=== PATIENT | female | born 1960 | race African-American/Black ===

== ENCOUNTER 2021-01-15 09:44 | Emergency (ER) | payer MEDICARE, MEDICAID ==
[~2021-01-15] VITALS: Ht 154.9 cm; Wt 81.8 kg
[~2021-01-15 09:44] MED LIST: FLEXERIL5 MG PO; NEURONTIN600 MG/TAB PO; PROTONIX 40MG T40 MG PO; TOPROL XL 25MG25 MG PO; VIVLODEX5 MG PO
[2021-01-15 09:50] VITALS: TEMP 98.5
[2021-01-15 10:28] LABS: BASO % 0.5 % (0.0-2.0); EOS # 0.3 (0.0-0.7); EOS % 3.7 % (0-4.0); GRAN # 2.9 (1.4-6.5); GRAN % 36.9 % (42.2-75.2); HEMOGLOBIN 11.2 g/dl (12.5-16.0); LYMPH # 3.9 (1.2-3.4); LYMPH % 49.7 % (20.0-51.0); MEAN CELL VOLUME 88 fl (80.0-100.0); MEAN CORPUSCULAR HEMOGLOBIN 27 pg (27.0-31.0); MEAN CORPUSCULAR HGB CONC 31 g/dl (33.0-37.0); MEAN PLATELET VOLUME 11.7 fl (7.4-10.4); MONO # 0.7 (0.1-0.6); MONO % 8.8 % (1.7-9.3); PLATELET COUNT 239 K/mm3 (130-400)
[2021-01-15 10:40] LABS: ALANINE AMINOTRANSFERASE 30 U/L (4-34); ALBUMIN 3.9 gm/dL (3.5-5.0); ALKALINE PHOSPHATASE 83 U/L (50-136); ANION GAP 8 mmol/L (7-16); AST,SGOT 36 U/L (15-37); BILIRUBIN,TOTAL 0.3 mg/dL (0.0-1.0); BLOOD UREA NITROGEN 23 mg/dL (7-17); CALCIUM 9.2 mg/dL (8.4-10.2); CARBON DIOXIDE 24 mmol/L (22-30); CHLORIDE 110 mmol/L (98-107); CREATININE, serum 0.98 (0.52-1.25); GLUCOSE 107 mg/dL (74-106); POTASSIUM 4.1 mmol/L (3.4-5.0); SODIUM 142 mmol/L (137-145); TOTAL PROTEIN 7.2 gm/dL (6.4-8.2)
[2021-01-15 10:42] LABS: C-REACTIVE PROTEIN < 0.5 mg/dL (0.0-0.9)
[2021-01-15 14:10] VITALS: BP 145/79; PULSE 82
== END 2021-01-15 14:15 | disposition home or self-care (01) ==
LOC: COL.ER
PROVIDERS: Family Medicine
DX: R07.9 Chest pain, unspecified (principal); G56.10 Other lesions of median nerve, unspecified upper limb; I10 Essential (primary) hypertension

== ENCOUNTER 2021-12-11 11:11 | Emergency (ER) | payer MEDICARE, MEDICAID ==
[~2021-12-11] VITALS: Ht 149.9 cm; Wt 85.9 kg
[2021-12-11 11:18] VITALS: TEMP 97.8
[2021-12-11 11:37] LABS: BASO % 0.1 % (0.0-2.0); EOS # 0.2 K/mm3 (0.0-0.7); EOS % 2.3 % (0.0-4.0); GRAN # 6.5 K/mm3 (1.4-6.5); GRAN % 61.7 % (42.2-75.2); HEMATOCRIT 42.2 % (37.0-47.0); HEMOGLOBIN 13.1 g/dl (12.5-16.0); LYMPH # 3.3 K/mm3 (1.2-3.4); MEAN CELL VOLUME 86 fl (80.0-100.0); MEAN CORPUSCULAR HEMOGLOBIN 27 pg (27-31); MEAN CORPUSCULAR HGB CONC 31 g/dl (33.0-37.0); MEAN PLATELET VOLUME 11.6 fl (7.4-10.4); MONO # 0.5 K/mm3 (0.1-0.6); MONO % 4.6 % (1.7-9.3); PLATELET COUNT 234 K/mm3 (130-400); RED BLOOD COUNT 4.91 M/mm3 (4.10-5.30); REDCELL DISTRIBUTION WIDTH-CV 14.4 % (11.5-14.5)
[2021-12-11 11:58] LABS: ALBUMIN 3.9 gm/dL (3.5-5.0); BILIRUBIN,TOTAL 0.6 mg/dL (0.2-1.2); C-REACTIVE PROTEIN 0.45 mg/dL (0.00-0.50); CALCIUM 8.9 mg/dL (8.4-10.2); CREATININE, serum 0.9 mg/dL (0.57-1.11); TOTAL PROTEIN 8.2 gm/dL (6.2-8.1)
[2021-12-11 13:07] LABS: COLLECTION METHOD CLEAN CATCH
[2021-12-11 13:13] LABS: PH 5 (5-8); SQUAMOUS EPITHELIAL 0-2 /hpf (0-10); URINE APPEARANCE Clear (CLEAR/HAZY); URINE BACTERIA None Seen /hpf (NONE SEEN); URINE BILIRUBIN Negative (NEGATIVE); URINE BLOOD Negative (NEGATIVE); URINE COLOR Yellow (YELLOW); URINE GLUCOSE Negative (NEGATIVE); URINE KETONE Negative (NEGATIVE); URINE LEUKOCYTE ESTERASE 2+ (NEGATIVE); URINE NITRATE Negative (NEGATIVE); URINE PROTEIN(semi-quant) Negative (NEGATIVE); URINE RBC 0-2 /hpf (0-2); URINE UROBILINOGEN Negative (NEGATIVE)
[2021-12-11] MEDS ORDERED: OMNICEF 300MG300 MG PO (13:42)
[2021-12-11] MEDS ORDERED: ZOFRAN 4MG T4 MG/TAB PO (13:42)
[2021-12-11 13:44] VITALS: BP 156/77; PULSE 81
== END 2021-12-11 13:57 | disposition home or self-care (01) ==
LOC: COL.ER 11:11
PROVIDERS: Nurse Practitioner Primary Care
DX: R10.31 Right lower quadrant pain (principal); R10.32 Left lower quadrant pain; R11.0 Nausea; M54.50 Low back pain, unspecified; I10 Essential (primary) hypertension; K21.9 Gastro-esophageal reflux disease without esophagitis; Z79.899 Other long term (current) drug therapy
CPT/HCPCS: J1885; J2405; J7030

== ENCOUNTER 2022-03-20 19:05 | Observation (INO) | payer MEDICARE, MEDICAID ==
[~2022-03-20] VITALS: Ht 152.4 cm; Wt 80.7 kg
[~2022-03-20 19:05] MED LIST changes: +OMNICEF 300MG300 MG PO; +ZOFRAN 4MG T4 MG/TAB PO
[2022-03-20 20:03] LABS: HEMOGLOBIN 12.1 g/dl (12.5-16.0); MEAN CELL VOLUME 84 fl (80.0-100.0); MEAN CORPUSCULAR HEMOGLOBIN 28 pg (27-31); MEAN CORPUSCULAR HGB CONC 33 g/dl (33.0-37.0); MEAN PLATELET VOLUME 11.5 fl (7.4-10.4); PLATELET COUNT 265 K/mm3 (130-400); REDCELL DISTRIBUTION WIDTH-CV 14.3 % (11.5-14.5)
[2022-03-20 20:17] LABS: BILIRUBIN,TOTAL 0.6 mg/dL (0.2-1.2); C-REACTIVE PROTEIN 0.28 mg/dL (0.00-0.50); CALCIUM 9.2 mg/dL (8.4-10.2); POTASSIUM 3.8 mmol/L (3.5-4.5)
[2022-03-20 20:27] LABS: TROPONIN-I 0.139 ng/mL (0.00-0.033)
[2022-03-20 20:29] LABS: EOSINOPHIL 1 % (0-4); LYMPHOCYTE 56 % (20.0-51.0); NEUTROPHILS 39 % (42.0-75.2); PLATELET ESTIMATE NORMAL (NORMAL)
[2022-03-20 20:34] LABS: INR 1.1 (0.8-3.0); PROTHROMBIN TIME 12.9 SECONDS (9.7-12.8)
[2022-03-20 20:49] LABS: ALBUMIN 3.6 gm/dL (3.5-5.0); CREATININE, serum 0.75 mg/dL (0.57-1.11)
[2022-03-20 21:02] LABS: D-DIMER < 200.00 ng/mLDDu (200-230)
[2022-03-20 21:13] LABS: PARTIAL THROMBOPLASTIN TIME 29.5 SECONDS (26.0-37.0)
[2022-03-20 22:25] VITALS: BP 145/69; PULSE 78; TEMP 98.5
[2022-03-20] MEDS ORDERED: CYMBALTA 30MG30 MG PO (22:40)
[2022-03-20] MEDS ORDERED: LIPITOR 10MG10 MG PO (22:41)
[2022-03-20] MEDS ORDERED: MULTIVITAMIN FO1 CAP PO (22:42)
[2022-03-20] MEDS ORDERED: RESTASIS0.05% OP (22:45)
[2022-03-20 23:43] VITALS: BP 124/64; PULSE 67; TEMP 97.9
[2022-03-21] VITALS (7 sets, daily range): BP systolic 110–154; BP diastolic 53–82; PULSE 56–85; TEMP 97.4–98.6
[2022-03-21 06:16] LABS: BASO % 0.5 % (0.0-2.0); EOS # 0.1 K/mm3 (0.0-0.7); EOS % 1.8 % (0.0-4.0); GRAN # 2.8 K/mm3 (1.4-6.5); GRAN % 37.9 % (42.2-75.2); HEMATOCRIT 37.3 % (37.0-47.0); HEMOGLOBIN 11.3 g/dl (12.5-16.0); LYMPH # 3.8 K/mm3 (1.2-3.4); LYMPH % 52.1 % (20.0-51.0); MEAN CORPUSCULAR HEMOGLOBIN 28 pg (27-31); MEAN CORPUSCULAR HGB CONC 30 g/dl (33.0-37.0); MEAN PLATELET VOLUME 12.3 fl (7.4-10.4); MONO # 0.5 K/mm3 (0.1-0.6); MONO % 7.4 % (1.7-9.3); PLATELET COUNT 233 K/mm3 (130-400); RED BLOOD COUNT 4.07 M/mm3 (4.10-5.30); REDCELL DISTRIBUTION WIDTH-CV 14.6 % (11.5-14.5)
[2022-03-21 06:21] LABS: MEAN CELL VOLUME 92 fl (80.0-100.0)
[2022-03-21 06:23] LABS: CALCIUM 8.5 mg/dL (8.4-10.2); CREATININE, serum 0.81 mg/dL (0.57-1.11); POTASSIUM 3.5 mmol/L (3.5-4.5)
--- NOTE | 2022-03-21 06:45 | NUR ---
Report received, assumed care for dayshift.
--- NOTE | 2022-03-21 10:27 | NUR ---
Heparin drip decresed to 700 units/hr per protocol for HepXa of 0.53.
--- NOTE | 2022-03-21 10:41 | NUR ---
SW met with patient to complete intake. Patient states that she lives in [place] alone and her point of contact his her daughter Ana [phone]. Patient states she does not utilize DME and is independent with ADL's, and does not utilize HH services. PCP is Dr. Mena and pharmacy is [facility]. Patient states she does not have a DPOA/HC and does not wish to appoint anyone at this time. Plan is to return to home in [place] upon dc. GHULAM will continue to follow. DC plan: home
--- NOTE | 2022-03-21 14:40 | NUR ---
Called with c/o chest pain. Rating pain 6/10 to mid sternum-described as sharp pains. VS WNL. EKG complete and on chart. Spoke with Dr Centeno and new orders received and initiated.
--- NOTE | 2022-03-21 15:01 | NUR ---
Patient states chest pain is gone after receiving nitro x1, protonix and tums.
--- NOTE | 2022-03-21 15:51 | NUR ---
Dr Centeno notified of critical troponin level. No new orders received.
--- NOTE | 2022-03-21 16:59 | NUR ---
HepXa 0.32-therapuetic. No change at this time.
--- NOTE | 2022-03-21 18:03 | NUR ---
Sitting up in bed eating dinner. Complained of chest pain x1. Received nitro x1 with a little relief. Received protonix and tums with pain resolution. Heparin gtt continues to infuse @7ml/hr. Denies current needs. Call light in reach. Will monitor.
--- NOTE | 2022-03-21 20:00 | NUR ---
Patient is resting in bed, alert and oriented x 4, VSS. Denies chest pain at the moment. Telemetry in place NSR. Hep gtt 7ml/hr At goal. Assessment completed, meds provide no other needs at this time. Call light within reach
[2022-03-22 03:49] VITALS: BP 108/67; PULSE 63; TEMP 97.8
--- NOTE | 2022-03-22 06:30 | NUR ---
Report received, assumed care for day shift.
--- NOTE | 2022-03-22 07:05 | NUR ---
Heparin drip decreased to 600 units/hour per protocol with a HepXa of 0.47.
[2022-03-22 07:56] VITALS: BP 125/63; PULSE 63; TEMP 98.5
--- NOTE | 2022-03-22 08:00 | NUR ---
Assessment complete. A&Ox3. Denies pain/chest pain/nausea/shortness of breath. VS remain stable. Tele reporting SB. Right forearm IV with Heparin infusing at 700units/hour. Left forearm INT flushes without difficutly. Plan of care discussed for this shift to inclue meds/heparin gtt/calling for questions/concerns. Verbalizes understanding. Call light in reach. Will monitor.
--- NOTE | 2022-03-22 11:01 | NUR ---
Clear liquids provided per patient request.
[2022-03-22 12:22] VITALS: BP 144/68; PULSE 62; TEMP 98.3
--- NOTE | 2022-03-22 14:11 | NUR ---
HepXa therapuetic-no change required.
--- NOTE | 2022-03-22 15:51 | NUR ---
Called with c/o heartburn from lunch meal. Mylanta given per dr order. Denies chest pain/nausea/shortness of breath. Denies current needs. Call light in reach. Will monitor.
[2022-03-22 16:26] VITALS: BP 151/88; PULSE 78; TEMP 98.1
--- NOTE | 2022-03-22 17:09 | NUR ---
Patient had an unevenful day. Denied pain/chest pain/shortness of breath/nausea. VS remained stable. Heparin infusing @600units/hour to right forearm IV without difficulty. Next HepXa due at 1900. Discussed NPO at midnight tonight for cards procedure tomorrow. Denies questions/concerns. Call light in reach. Will monitor.
[2022-03-22 20:10] VITALS: BP 157/74; PULSE 79; TEMP 98.3
[2022-03-22 23:59] VITALS: BP 116/48; PULSE 61; TEMP 99.4
[2022-03-23 03:47] VITALS: BP 131/65; PULSE 57; TEMP 98.6
--- NOTE | 2022-03-23 06:28 | NUR ---
ASSUMED CARE OF PATIENT AFTER RECEIVING BEDSIDE REPORT. ASSESSMENT COMPLETED, VSS. PATIENT DENIES ANY CHEST PAIN OR RELATED SYMPTOMS. PATIENT DENIES QUESTIONS, COMPLAINTS, AND CONCERNS. PATIENT NPO AFTER MIDNIGHT. NO ACUTE EVENTS OVERNIGHT. BEDSIDE REPORT TO BE GIVEN TO ONCOMING SHIFT.
[2022-03-23 07:07] VITALS: BP 104/67; PULSE 55; TEMP 98
--- NOTE | 2022-03-23 09:14 | NUR ---
PT LAYING SUPINE IN BED. PT STATES THAT SHE IS NOT WANTING TO TAKE ANY OF HER MEDICATIONS THIS AM BECAUSE SHE HAS BEEN NPO AND DOES NOT WANT TO TAKE THEM ON AN EMPTY STOMACH SO THEY DO NOT CAUSE ANY N/V. MEDICATIONS WERE HELD PER HER REQUEST. PT STATES THAT SHE IS NOT HAVING ANY CHEST PAIN OR DISCOMFORT AT THIS TIME. NO SOB OR DIZZINES. "IM JUST WAITING TO SEE WHAT THEY ARE GOING TO DO." CALL LIGHT IS WITHIN REACH.
[2022-03-23 10:04] LABS: CALCIUM 8.6 mg/dL (8.4-10.2); CREATININE, serum 0.88 mg/dL (0.57-1.11); POTASSIUM 4.2 mmol/L (3.5-4.5)
[2022-03-23] MEDS ORDERED: RANEXA 500MG T500 MG PO (10:55)
[2022-03-23] MEDS ORDERED: LIPITOR 80MG80 MG PO (10:55)
[2022-03-23] MEDS ORDERED: ASPIRIN 81M81 MG/TA2 PO (10:56)
[2022-03-23 11:07] VITALS: BP 134/66; PULSE 60; TEMP 98.4
[2022-03-23] MEDS ORDERED: TOPROL XL 25MG25 MG PO (11:28)
--- NOTE | 2022-03-23 13:18 | NUR ---
The patient is to discharge back home today, 03/23. SW met with the patient and presented and read the IM form outloud to the patient. The patient verbalized understanding and of discharge today. She signed the form and declined a copy. No additional needs at this time.
== END 2022-03-23 13:30 | disposition home or self-care (01) ==
LOC: COL.ER 19:05 → MEDICAL 21:11
PROVIDERS: Emergency Medicine; Physician Assistant; Student in an Organized Health Care Education/Training Program; ADMIT Internal Medicine
DX: I21.4 Non-ST elevation (NSTEMI) myocardial infarction (principal); I16.0 Hypertensive urgency; I11.0 Hypertensive heart disease with heart failure; I50.30 Unspecified diastolic (congestive) heart failure; I42.2 Other hypertrophic cardiomyopathy; K21.9 Gastro-esophageal reflux disease without esophagitis; G89.29 Other chronic pain; M54.50 Low back pain, unspecified; E78.5 Hyperlipidemia, unspecified; Z28.310 Unvaccinated for COVID-19; Z28.9 Immunization not carried out for unspecified reason; Z79.899 Other long term (current) drug therapy; Z91.19 Patient's noncompliance with other medical treatment and regimen; Z79.82 Long term (current) use of aspirin
CPT/HCPCS: 99223-AI; 99232-AI; 99233-AI; C9113; G0378; J1644; J2270; J7030

== ENCOUNTER 2022-04-02 21:23 | Emergency (ER) | payer MEDICARE, MEDICAID ==
[~2022-04-02] VITALS: Ht 172.7 cm; Wt 86.4 kg
[~2022-04-02 21:23] MED LIST changes: +ASPIRIN 81M81 MG/TA2 PO; +CYMBALTA 30MG30 MG PO; +LIPITOR 10MG10 MG PO; +LIPITOR 80MG80 MG PO; +MULTIVITAMIN FO1 CAP PO; +RANEXA 500MG T500 MG PO; +RESTASIS0.05% OP
[2022-04-02 23:38] VITALS: BP 144/78; PULSE 76
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
== END 2022-04-02 23:38 | disposition home or self-care (01) ==
LOC: COL.ER 21:23
DX: S10.80XA Unspecified superficial injury of other specified part of neck, initial encounter (principal); S50.11XA Contusion of right forearm, initial encounter; S40.021A Contusion of right upper arm, initial encounter; Z28.310 Unvaccinated for COVID-19; Y04.0XXA Assault by unarmed brawl or fight, initial encounter

== ENCOUNTER 2022-05-12 18:03 | Observation (INO) | payer MEDICARE, MEDICAID ==
[~2022-05-12] VITALS: Ht 152.4 cm; Wt 83.4 kg
[2022-05-12 18:19] LABS: HEMATOCRIT 38.1 % (37.0-47.0); MEAN CELL VOLUME 86 fl (80.0-100.0); MEAN CORPUSCULAR HEMOGLOBIN 27 pg (27-31); MEAN CORPUSCULAR HGB CONC 32 g/dl (33.0-37.0); MEAN PLATELET VOLUME 11.7 fl (7.4-10.4); PLATELET COUNT 322 K/mm3 (130-400); RED BLOOD COUNT 4.45 M/mm3 (4.10-5.30); REDCELL DISTRIBUTION WIDTH-CV 13.8 % (11.5-14.5)
[2022-05-12 18:35] LABS: ALANINE AMINOTRANSFERASE 50 U/L (0-55); ALKALINE PHOSPHATASE 78 U/L (40-150); ANION GAP 16 mmol/L (7-16); AST,SGOT 34 U/L (5-34); BILIRUBIN,TOTAL 0.6 mg/dL (0.2-1.2); BLOOD UREA NITROGEN 18 mg/dL (10-20); CALCIUM 9.7 mg/dL (8.4-10.2); CARBON DIOXIDE 22 mmol/L (23-31); CHLORIDE 105 mmol/L (98-107); CREATININE, serum 0.91 mg/dL (0.57-1.11); GLUCOSE 93 mg/dL (70-99); INR 1.2 (0.8-3.0); PROTHROMBIN TIME 13.9 SECONDS (9.7-12.8); SODIUM 143 mmol/L (136-145); TOTAL PROTEIN 8.8 gm/dL (6.2-8.1)
[2022-05-12 18:37] LABS: PARTIAL THROMBOPLASTIN TIME 33.3 SECONDS (26.0-37.0)
[2022-05-12 18:42] LABS: ALCOHOL(ethanol),MEDICAL < 10 mg/dL (0-10)
[2022-05-12 18:43] LABS: TROPONIN-I 0.072 ng/mL (0.00-0.033)
[2022-05-12 19:26] LABS: EOSINOPHIL 1 % (0-4); LYMPHOCYTE 49 % (20.0-51.0); NEUTROPHILS 47 % (42.0-75.2); PLATELET ESTIMATE NORMAL (NORMAL)
[2022-05-12 23:09] VITALS: BP 188/74; PULSE 63; TEMP 98.3
[2022-05-13] VITALS (8 sets, daily range): BP systolic 126–171; BP diastolic 59–77; PULSE 58–65; TEMP 98.3–99.7
--- NOTE | 2022-05-13 00:53 | NUR ---
PATIENT UP TO ROOM 329. ALERT AND ORIENTED, SLID OVER TO BED FROM STRETCHER WITHOUT ISSUE. MED RX COMPLETED. ADMISSION ASSESSMENTS COMPLETED. CALL PLACED TO JARED SHOEMAKER, TO NOTIFY OF ARRIVAL AND BP ELEVATION. ORDER TO RESTART HOME METOPROLOL NOW. METOPROLOL GIVEN AND JARED SHOEMAKER IN ROOM TO SEE PATIENT. DISCUSSED CASE WITH JARED SHOEMAKER AND ADDITIONAL 25 MG OF METOPROLOL ORDERED AND GIVEN. PATIENT TOLERATED X2 JELLOS AND SOME WATER. REMAINS NPO SINCE MIDNIGHT FOR CARDS CONSULT IN AM.
[2022-05-13 06:47] LABS: BASO % 0.5 % (0.0-2.0); EOS # 0.2 K/mm3 (0.0-0.7); EOS % 2.5 % (0.0-4.0); GRAN # 3.3 K/mm3 (1.4-6.5); GRAN % 41.3 % (42.2-75.2); HEMOGLOBIN 11.4 g/dl (12.5-16.0); LYMPH # 3.9 K/mm3 (1.2-3.4); LYMPH % 49.2 % (20.0-51.0); MEAN CELL VOLUME 86 fl (80.0-100.0); MEAN CORPUSCULAR HEMOGLOBIN 27 pg (27-31); MEAN CORPUSCULAR HGB CONC 32 g/dl (33.0-37.0); MONO # 0.5 K/mm3 (0.1-0.6); MONO % 6.2 % (1.7-9.3); PLATELET COUNT 288 K/mm3 (130-400); RED BLOOD COUNT 4.22 M/mm3 (4.10-5.30); REDCELL DISTRIBUTION WIDTH-CV 13.8 % (11.5-14.5)
[2022-05-13 07:02] LABS: ALBUMIN 3.5 gm/dL (3.4-4.8); BILIRUBIN,TOTAL 0.7 mg/dL (0.2-1.2); CALCIUM 9.1 mg/dL (8.4-10.2); CREATININE, serum 0.84 mg/dL (0.57-1.11); POTASSIUM 3.3 mmol/L (3.5-4.5); TOTAL PROTEIN 7.7 gm/dL (6.2-8.1)
[2022-05-13 07:08] LABS: HEMATOCRIT 36.1 % (37.0-47.0)
[2022-05-13 07:50] LABS: TROPONIN-I 0.07 ng/mL (0.00-0.033)
--- NOTE | 2022-05-13 09:04 | NUR ---
Grounds Caretaker met with patient to discuss discharge planning. Patient lives alone in [place] and advised her daughter, Ana (ph#[phone]) lives nearby. Patient sees Monica Mena for primary care and obtains medications from [facility] with no difficulties. Patient is independent with ADLS and does not use any DME. Patient does not have Advance Directives and plans to return home at time of discharge. Discharge Plan: Home
--- NOTE | 2022-05-13 09:30 | NUR ---
Pt reports she is doing okay this morning. She does have complaints of a headache, notified Yuliya SHOEMAKER for Tylenol order. Discussed with cardiology pt home medications, okay to give at this time. Potassium level as well as troponin level was reported to Yuliya SHOEMAKER earlier this am. Potassium being replaced per protocol. Pt having complaints of it burning, turned down to 50ml/hr for comfort and gave ice pack. Cardiology reported they would be by soon to see her
--- NOTE | 2022-05-13 10:20 | NUR ---
Pt having complaints of chest pain, BP slightly elevated, pulse stable. Notified SAHARA Lawler with cardiology. Had pt go ahead and take her morning medications. Pt refused to take them earlier stating that it will make her stomach upset on an empty stomach. Informed her that if that happens I can get her some nausea medications.
--- NOTE | 2022-05-13 13:03 | NUR ---
Initial visit; Patient thanked Superintendent Service for visiting her and states she is doing well and waiting for her lunch. Superintendent Service was pleased to hear that patient is doing well and advised her to continue to do what she is doing! She smiled and thanked Superintendent Service.
--- NOTE | 2022-05-13 15:16 | NUR ---
Pt doing well this afternoon. No complaints of pain at this time. She has tolerated heart healthy diet with no issues. All questions answered, call light within reach
--- NOTE | 2022-05-14 02:14 | NUR ---
PATIENT IN BED ON ROOM ENTRY AT SHIFT CHANGE. ALERT AND ORIENTED. HS MEDS PER EMAR. PATIENT REQUESTED BEDCHANGE AND LINEN CHANGE WAS COMPLETE. PATIENT SHOWERED INDEPENDENTLY WITH SETUP ASSISTANCE. DENIES ADDITIONAL NEEDS.
[2022-05-14 04:41] VITALS: BP 138/75; PULSE 59; TEMP 99.1
[2022-05-14 06:46] LABS: BASO % 0.5 % (0.0-2.0); EOS # 0.2 K/mm3 (0.0-0.7); EOS % 2.5 % (0.0-4.0); GRAN # 3.9 K/mm3 (1.4-6.5); GRAN % 46.1 % (42.2-75.2); LYMPH # 3.7 K/mm3 (1.2-3.4); LYMPH % 44.4 % (20.0-51.0); MEAN CELL VOLUME 87 fl (80.0-100.0); MEAN CORPUSCULAR HEMOGLOBIN 27 pg (27-31); MEAN CORPUSCULAR HGB CONC 32 g/dl (33.0-37.0); MEAN PLATELET VOLUME 11.5 fl (7.4-10.4); MONO # 0.5 K/mm3 (0.1-0.6); MONO % 6.3 % (1.7-9.3); PLATELET COUNT 293 K/mm3 (130-400); RED BLOOD COUNT 4.38 M/mm3 (4.10-5.30); REDCELL DISTRIBUTION WIDTH-CV 13.7 % (11.5-14.5)
[2022-05-14 07:17] LABS: ALBUMIN 3.6 gm/dL (3.4-4.8); BILIRUBIN,TOTAL 0.4 mg/dL (0.2-1.2); CALCIUM 9.4 mg/dL (8.4-10.2); CREATININE, serum 1.04 mg/dL (0.57-1.11); TOTAL PROTEIN 7.8 gm/dL (6.2-8.1)
[2022-05-14 08:13] VITALS: BP 124/71; PULSE 54; TEMP 98.7
[2022-05-14] MEDS ORDERED: RANEXA 500MG T500 MG PO (09:17)
[2022-05-14] MEDS ORDERED: TOPROL XL 50MG50 MG PO (09:18)
--- NOTE | 2022-05-14 10:24 | NUR ---
ASSESSMENT DONE, PATIENT ALERTX 4 WITH NO ISSUE OF CONFUSION.PATIENT IS A FULL CODE. NO PAIN AT THIS TIME. LUNG CLEAR IN ALL LOBES. BOWEL SOUND ACTIVE IN ALL 4 QUAD. IV SITE ON RIGHT AC AND RIGHT HAND. PER ORDER ,PATIENT POSSIBLE DISCHARGE TODAY. PATIENT TOLERATED MEDICATION WITH OUT ANY ISSUE. CALL LIGHT IN REACH. INSTRUCTED TO CALL IF THERE IS ANY CONCERN OR QUESTION
[2022-05-14 11:18] VITALS: BP 125/70; PULSE 53
--- NOTE | 2022-05-14 11:50 | NUR ---
AGREE WITH CHARTED ASSESSMENTS.
--- NOTE | 2022-05-14 12:09 | NUR ---
PATIENT WILL BE DISCHARGE TODAY. PATIENT IS AWARE AND INFORM HER FAMILY. SHE STATED THAT FAMILY WILL BE HERE AROUND 2 PM. IV SITE WAS DISCONTINUE (R) AC AND R(HAND) NO BLEEDING NOTED. NO PAIN NOTED. PATIENT DID FOR TYLENOL AROUND 1100AM. VITALS WAS STABLE AT THAT TIME. HEADACHE DECREASE TO FROM HARD TO MILD NOW(PER PATIENT)
--- NOTE | 2022-05-14 14:11 | NUR ---
DISCHARGE INSTRUCTIONS REVIEWED WITH PT. QUESTIONS SOLICITED AND ANSWERED. PT LEFT UNIT IN WHEEL CHAIR WITH STAFF.
== END 2022-05-14 14:13 | disposition home or self-care (01) ==
LOC: COL.ER → EDBD 18:04 → COL.ER 18:04 → SURG 22:00
PROVIDERS: Emergency Medicine; Physician Assistant; ADMIT Internal Medicine
DX: I21.A1 Myocardial infarction type 2 (principal); R07.9 Chest pain, unspecified; I11.0 Hypertensive heart disease with heart failure; I50.30 Unspecified diastolic (congestive) heart failure; E78.5 Hyperlipidemia, unspecified; E87.6 Hypokalemia; I42.2 Other hypertrophic cardiomyopathy; G89.29 Other chronic pain; M54.50 Low back pain, unspecified; Z28.310 Unvaccinated for COVID-19; Z28.9 Immunization not carried out for unspecified reason; Z79.82 Long term (current) use of aspirin; K21.9 Gastro-esophageal reflux disease without esophagitis; Z79.899 Other long term (current) drug therapy
CPT/HCPCS: G0378; J2270; J2765; J3010; J3480; Q9967